=== PATIENT | male | born 1985 | race Two or more races ===

== ENCOUNTER 2024-02-20 09:06 | Outpatient (AMB) | payer OTHER, SELFPAY ==
[2024-02-20 09:35] VITALS: BP 138/86; PULSE 78; O2SAT 98; BMI 27.6
--- NOTE | 2024-02-20 09:35 | MHC.PC.OV ---
Vital Signs 02/20/24 09:35 Height 5 ft 11 in Weight 198 lb BMI 27.6 BP 138/86 Blood Pressure Location Rt brachial Position Sitting Pulse 78 Pulse Source Pulse Oximeter Pulse Oximetry (%) 98 Oxygen Delivery Method Room Air Intake Visit Reasons: Establish Care Intake Note: Patient reports he is here to establish care and has concerns for high blood pressure. Patient also has a concern with his genital area he would like to discuss with the doctor. Yarn Spooler Required: No Accompanied by: Self / Same As Patient Allergies No Known Allergies Allergy (Verified 02/20/24 09:39) Tobacco use date assessed: 02/20/24 Dental Screening Dental Screen Date: 02/20/24 Did you have a dental visit in the last 12 months?: Yes Did you have a dental problem in the last 6 months where you did not have access to dental care?: No Was dental information given to patient?: Patient has dentist HPI HPI Comments History of Present Illness Details 39 year old male with a past medical history of hypertension presenting to establish care. Moved from [place] a few years ago and has not established care CV: Elevated blood pressure. BPs at home 130s over 90s. Today in office 138/86. Was on lisinopril in [place], unsure of dose. Denies headaches. Reports rash of the head of the penis. Uncircumcised. Scaly sometimes uncomfortable. Used topical cream-unsure of what type without improvement. Reports previously-years ago was noted to high glucose. Denies polyuria, polydipsia. Denies penile discharge ROS see HPI PHYSICAL EXAM: GENERAL: Alert and oriented x 3. NAD EYES: EOMI. Anicteric. HENT: Moist mucous membranes. No scleral icterus. No cervical lymphadenopathy. LUNGS: Clear to auscultation bilaterally. CARDIOVASCULAR: Regular rate and rhythm. No murmur. No JVD. ABDOMEN: Soft, non-tender +bs EXTREMITIES: No edema. Non-tender. SKIN: Mild balanitis NEUROLOGIC: No focal neurological deficits. CN II-XII grossly intact PSYCHIATRIC: Cooperative. Appropriate mood and affect [facility] Medical History (Updated 02/20/24 @ 13:21 by Merlene West MD) Hypertension Surgical History No pertinent past surgical history Family History Paternal Grandmother Diabetes Mother Hypertension Social History Household Members: Spouse and Children Household Members Other:: 2 daughters Both parents involved: No Caregiver staying overnight: No Housing: Apartment Are you a primary career and technology education teacher to a significant other at home: No Do you presently have visiting nurse or other home services: No 75 years or older and lives alone: No Alcohol intake: current Alcohol intake frequency: a few times a month Alcohol type: beer Patient Tobacco Use Status: Never used Tobacco e-Cigarette/Vaping Use: Never Used Substance Use Type: Marijuana service: No Current occupational status: employed Current occupation: Mental health Cognitive needs: No Hearing needs: No Vision needs: No Questionnaire PHQ-9 Over the last 2 weeks, how often have you been bothered by any of the following problems? 1. Little interest or pleasure in doing things: not at all 2. Feeling down, depressed, or hopeless: not at all 3. Trouble falling or staying asleep, or sleeping too much: not at all 4. Feeling tired or having little energy: not at all 5. Poor appetite or overeating: not at all 6. Feeling bad about yourself - or that you are a failure or have let yourself or your family down: not at all 7. Trouble concentrating on things, such as reading the newspaper or watching television: not at all 8. Moving or speaking so slowly that other people could have noticed. Or the opposite - being so fidgety or restless that you have been moving around a lot more than usual: not at all 9. Thoughts that you would be better off or of hurting yourself in some way: not at all Total score: 0 Depression Screening Interpretation: Negative (neg) Depression Screening Done: Yes 16831 - PHQ-9 Billing: Yes Source: Developed by Drs. Ashok Sandoval, Adriana Tarango, Bassem Portillo and colleagues, with an educational payton from [employer]. Thrive Questionnaire Date Thrive assessed: 02/20/24 I am a: Patient What is your living situation today?: I have a steady place to live Within the past 12 months, did the food you bought not last and you didn't have the money to get more?: Never true Within the past 12 months, did you worry whether your food would run out before you got money to buy more?: Never true Do you have trouble paying for medicines?: No Do you have trouble getting transportation to medical appointments?: No Do you have trouble paying your heating and electricity bill?: No Do you have trouble taking care of your child, family member or friend?: No Do you have trouble with day-to-day activities such as bathing, preparing meals, shopping, managing finances, etc.?: No Are you currently unemployed and looking for a job?: No Are you interested in more education?: No Please select the resources that you would like help with: None Currently or been in a relationship where the following occur: No concerns reported THRIVE Score: 0 AUDIT C Alcohol Use Questionnaire (AUDIT-C) 1. How often do you have a drink containing alcohol?: 2-4 times a month 2. How many drinks containing alcohol do you have on a typical day when you are drinking?: 1 or 2 3. How often do you have six or more drinks on one occasion?: Never Total Score: 2 FLAKITO-7 AMB Questionnaire FLAKITO-7 Date FLAKITO - 7 assessed: 02/20/24 Feeling nervous, anxious, or on edge: 0 = Not at all Not being able to stop or control worryin = Not at all Worrying too much about different things: 0 = Not at all Trouble relaxin = Not at all Being so restless that it is hard to sit still: 0 = Not at all Becoming easily annoyed or irritable: 0 = Not at all Feeling afraid as if something awful might happen: 0 = Not at all Total FLAKITO-7 score (0-4 normal; 5-9 mild; 10-14 moderate; 15-21 severe): 0 Source: Developed by Drs. Ashok Sandoval, Adriana Tarango, Bassem Portillo and colleagues, with an educational payton from [employer]. FLAKITO-7 Assessment Billing FLAKITO-7 Assessment Tool: FLAKITO-7 Assessment 08671 Physical exam (Primary Care) Vital Signs: Last Vital Signs Pulse 78 02/20/24 09:35 BP 138/86 02/20/24 09:35 Pulse Ox 98 02/20/24 09:35 Oxygen Delivery Method Room Air 02/20/24 09:35 BMI result Body Mass Index 27.6 Tobacco/Smoking Status: Tobacco use Status Tobacco use date assessed 02/20/24 02/20/24 09:44 Patient Tobacco Use Status Never used Tobacco 02/20/24 09:44 e-Cigarette/Vaping Use Never Used 02/20/24 09:44 PHQ-9: PHQ-9 Score PHQ-9: Total score 0 02/20/24 13:21 Depression Screening Interpretation: Negative (neg) Thrive Assessment: Date of Thrive Assessment Date Thrive assessed 02/20/24 02/20/24 10:02 Currently or been in a relationship where the following occur: No concerns reported Assessment and Plan Assessment & Plan (1) Encounter to establish care: Code(s): Z76.89 - Persons encountering health services in other specified circumstances Plan: 39 y/o male presenting to establish care. Past medical, surgical, social and family history reviewed. Labs ordered (2) Hypertension: Code(s): I10 - Essential (primary) hypertension Qualifiers: Hypertension type: primary hypertension Qualified Code(s): I10 - Essential (primary) hypertension Plan: Restart lisinopril. Sent 10mg daily. BP cuff to next visit (3) Balanitis: Code(s): N48.1 - Balanitis Plan: Failed topical therapy Oral ordered. Discussed keeping the penis clean and dry. Orders: Orders Complete Blood Count Auto Diff Today N48.1 - Debbie, Z11.3 - Encounter for screening for infections with a predominantly sexual mode of transmission, Z13.0 - Encounter for screening for diseases of the blood and blood-forming organs and certain disorders involving the immune mechanism, Z13.220 - Encounter for screening for lipoid disorders, Z13.228 - Encounter for screening for other metabolic disorders Comprehensive Met. Panel Today N48.1 - Debbie, Z11.3 - Encounter for screening for infections with a predominantly sexual mode of transmission, Z13.0 - Encounter for screening for diseases of the blood and blood-forming organs and certain disorders involving the immune mechanism, Z13.220 - Encounter for screening for lipoid disorders, Z13.228 - Encounter for screening for other metabolic disorders Lipid Panel Today N48.1 - Debbie, Z11.3 - Encounter for screening for infections with a predominantly sexual mode of transmission, Z13.0 - Encounter for screening for diseases of the blood and blood-forming organs and certain disorders involving the immune mechanism, Z13.220 - Encounter for screening for lipoid disorders, Z13.228 - Encounter for screening for other metabolic disorders Hepatitis C Antibody Today N48.1 - Doctis, Z11.3 - Encounter for screening for infections with a predominantly sexual mode of transmission, Z13.0 - Encounter for screening for diseases of the blood and blood-forming organs and certain disorders involving the immune mechanism, Z13.220 - Encounter for screening for lipoid disorders, Z13.228 - Encounter for screening for other metabolic disorders, Z20.2 - Contact with and (suspected) exposure to infections with a predominantly sexual mode of transmission HIV Ab/Ag Today N48.1 - Doctis, Z11.3 - Encounter for screening for infections with a predominantly sexual mode of transmission, Z13.0 - Encounter for screening for diseases of the blood and blood-forming organs and certain disorders involving the immune mechanism, Z13.220 - Encounter for screening for lipoid disorders, Z13.228 - Encounter for screening for other metabolic disorders, Z20.2 - Contact with and (suspected) exposure to infections with a predominantly sexual mode of transmission CT NG by PCR Today N48.1 - Doctis, Z11.3 - Encounter for screening for infections with a predominantly sexual mode of transmission, Z13.0 - Encounter for screening for diseases of the blood and blood-forming organs and certain disorders involving the immune mechanism, Z13.220 - Encounter for screening for lipoid disorders, Z13.228 - Encounter for screening for other metabolic disorders, Z20.2 - Contact with and (suspected) exposure to infections with a predominantly sexual mode of transmission Hemoglobin A1c Today N48.1 - Balanitis, Z11.3 - Encounter for screening for infections with a predominantly sexual mode of transmission, Z13.0 - Encounter for screening for diseases of the blood and blood-forming organs and certain disorders involving the immune mechanism, Z13.220 - Encounter for screening for lipoid disorders, Z13.228 - Encounter for screening for other metabolic disorders Syphilis Screen Today N48.1 - Doctis, Z11.3 - Encounter for screening for infections with a predominantly sexual mode of transmission, Z13.0 - Encounter for screening for diseases of the blood and blood-forming organs and certain disorders involving the immune mechanism, Z13.220 - Encounter for screening for lipoid disorders, Z13.228 - Encounter for screening for other metabolic disorders, Z20.2 - Contact with and (suspected) exposure to infections with a predominantly sexual mode of transmission Medications: New cephalexin 500 mg PO QID 12 caps 0RF 3 days fluconazole 150 mg PO DAILY PRN 7 tabs 1RF yeast infection lisinopril 10 mg PO DAILY 90 tabs 3RF clotrimazole 1% 1 appl topical BID 45 grams 0RF 4 weeks Coding Level of Care Code New Pt Level 4 (08728) Complex EM visit Add On G2211 Diagnoses Encounter to establish care Z76.89 Primary hypertension I10 Hypertension type: primary hypertension Balanitis N48.1 Additional Codes FLAKITO-7 Assessment Billing - FLAKITO-7 Assessment Tool: FLAKITO-7 Assessment 74993 ([id number])
== END 2024-02-20 10:19 | disposition home or self-care (01) ==
PROVIDERS: PCP Internal Medicine; Visit Provider Internal Medicine
DX: Z76.89 Persons encountering health services in other specified circumstances (principal); I10 Essential (primary) hypertension; N48.1 Balanitis

== ENCOUNTER → 2024-02-20 09:06 | Outpatient (BNVA) | payer OTHER, SELFPAY | PROVIDERS: Visit Provider Internal Medicine | DX: Z76.89 Persons encountering health services in other specified circumstances (principal); I10 Essential (primary) hypertension; N48.1 Balanitis | CPT/HCPCS: 96127 ==

== ENCOUNTER 2024-02-27 09:43 | Outpatient (REF) | payer OTHER, SELFPAY ==
[2024-02-27 11:19] LABS: Basophils Percent Auto 0.6 % (0-2); Eosinophils Absolute Auto 0.1 X10*3/uL (0.0-0.4); Eosinophils Percent Auto 2.5 % (0-4); Hematocrit 46.2 % (42.0-52.0); Hemoglobin 16.2 g/dl (14.0-18.0); Imm Gran Abs Auto 0.01 X10*3/uL (0.00-0.03); Imm Gran Pct Auto 0.3 % (0.0-0.4); Lymphocytes Absolute Auto 1.9 X10*3/uL (1.2-4.9); Lymphocytes Percent Auto 58.9 % (20-40); MANUAL DIFF FLAG SCAN; Mean Corpuscular HGB Conc 35.1 g/dl (31.0-36.0); Mean Corpuscular Hemoglobin 30.6 pg (27.0-33.0); Mean Corpuscular Volume 87.3 fL (80.0-98.0); Mean Platelet Volume 10.5 fL (9.4-12.4); Monocytes Absolute Auto 0.4 X10*3/uL (0.1-1.2); Monocytes Percent Auto 12.5 % (2-11); Neutrophils Absolute Auto 0.8 x10*3/uL (2.0-8.3); Neutrophils Percent Auto 25.2 % (45-73); Platelet Count 204 X10*3/uL (160-400); Red Blood Count 5.29 X10*6/uL (4.60-5.80); Red Cell Distribution Width 12.5 % (11.0-16.0); SCAN SMEAR FLAG 1; White Blood Count 3.2 X10*3/uL (4.8-10.8)
[2024-02-27 11:38] LABS: Estimated Average Glucose 100 mg/dL; Hemoglobin A1c % 5.1 % (<6.0); Total Hemoglobin (HGBA1C) 4060.7967 umol/L
[2024-02-27 11:46] LABS: SLIDE REVIEW VERIFIED
[2024-02-27 11:58] LABS: Alanine Aminotransferase 33 U/L (0-40); Albumin Level 4.6 g/dL (3.5-5.0); Alkaline Phosphatase 63 U/L (39-117); Anion Gap 10 (12-20); Aspartate Amino Transferase 18 U/L (5-37); Bilirubin Total 0.6 mg/dL (0.0-1.0); Blood Urea Nitrogen 17 mg/dL (9-16); Carbon Dioxide 30 mmol/L (22-29); Chloride 104 mmol/L (96-108); Cholesterol 182 mg/dL (<200); Estimated Glomerular Filt Rate > 60; Glucose Random 99 mg/dL (60-115); HDL Cholesterol 42 mg/dL (>40); LDL Cholesterol Calculated 113 mg/dL (<100); Potassium 4.1 mmol/L (3.3-5.1); Sodium 140 mmol/L (135-145); Total Protein 7.9 g/dL (6.5-8.0); Triglycerides 138 mg/dL (<150)
[2024-02-28 04:30] LABS: Syphilis Screen Nonreactive (Nonreactive)
[2024-02-28 04:46] LABS: HIV AB/AG Nonreactive (Nonreactive); HIV Num 1 0.07 S/CO (0.00-0.99); ~HepC Num1 0.09 S/CO (0.00-0.79); ~Hepatitis C Antibody Nonreactive (Nonreactive)
== END 2024-02-27 09:44 | disposition home or self-care (01) ==
LOC: HO.WFDLDS 09:43
PROVIDERS: Visit Provider Internal Medicine
DX: Z13.228 Encounter for screening for other metabolic disorders (principal); Z11.3 Encounter for screening for infections with a predominantly sexual mode of transmission; N48.1 Balanitis; Z13.0 Encounter for screening for diseases of the blood and blood-forming organs and certain disorders involving the immune mechanism; Z13.220 Encounter for screening for lipoid disorders; Z20.2 Contact with and (suspected) exposure to infections with a predominantly sexual mode of transmission; Z13.1 Encounter for screening for diabetes mellitus
CPT/HCPCS: 36415; 80053; 80061; 83036; 85025; 86780; 86803; 87389